=== PATIENT | male | born 1975 | race Caucasian/White ===

== ENCOUNTER 2016-12-18 12:54 | Emergency (ER) | payer OTHER ==
[~2016-12-18] VITALS: Ht 182.9 cm; Wt 65.3 kg
[~2016-12-18 12:54] MED LIST: PERCOCET 325 MG1 TA2 PO; PROTEIN1 PDR PO
--- NOTE | 2016-12-18 13:28 | ED GENERAL ADULT ---
History of Present Illness General Chief Complaint: Abdominal Pain/Flank Pain Stated Complaint: ABD PAIN AND LOWER BACK PAIN Source: patient Exam Limitations: no limitations Vital Signs & Intake/Output Vital Signs & Intake/Output Vital Signs Date Time Temp Pulse Resp B/P Pulse O2 O2 Flow FiO2 Ox Delivery Rate 12/18 1605 98.0 80 16 114/70 98 Room Air Room Air 12/18 1314 98.7 92 18 138/91 98 Room Air ED Intake and Output 12/19 0000 12/18 1200 Intake Total 0 Output Total Balance 0 Intake, Oral 0 Patient 144 lb Weight Allergies Coded Allergies: MDX - Penicillin (PENICILLIN) (Intermediate, STOMACH BLEEDING 06/17/11) Reconcile Medications OXYCODONE HCL/ACETAMINOPHEN (Percocet 5-325 MG Tablet) 325 MG/5 MG TAB 1 TAB PO Q4 HRS NEEDED PRN PAIN Polyethylene Glycol 3350 (Miralax) 17 GRAM/DOSE POWDER 17 GM PO DAILY PRN contipation mix with water, juice, soda, coffee or tea PROTEIN SUPPLEMENT (Protein Powder) 454 GM POWDER 1 PAC PO DAILY SUPPLEMENT ( Reported) Triage Note: 41 Y/O MALE C/O LLQ PAIN X 1 WEEK; STATES 1 WEEK AGO PAIN WAS RLQ. ALSO HAVING SMALL BM'S (LAST BM YESTERDAY BUT "SMALL"). HAVING "SHARP" PAIN IN LOW BACK RADIATING DOWN BOTH LEGS. DENIES NAUSEA. REPORTS DECREASED APPETITE/PO INTAKE. AFEBRILE. Triage Nurses Notes Reviewed? yes HPI: Pt is a 41 yo gentleman with no known past medical history presents with chief complaint of abdominal pain. Onset is about 1 month ago with pain starting at the RLQ abdominal area with radiation to his flank and right back side, the pain then moved to his LLQ area with radiation towards his left back. Patient the pain as dull rating it a 5-6/10 whe its worse. Pain is releived by movement and activity. Not associated with any food intake. Pt admits to having a history of constipation and also drinks a lot of caffeine and does not drink enough water, despite exercising regularly. Pt endorses passing flatus. Pt denies any fevers/ chills,nausea,vomiting,melena, decreased appetite, dysuria, chest pain, palptitation or shortness of breath. (FRANK WHALEN,DEMETRI) Past History Travel History Traveled to [place] past 21 day No Medical History Any Pertinent Medical History? see below for history Neurological: NONE EENT: NONE Cardiovascular: NONE Respiratory: NONE Gastrointestinal: NONE Hepatic: NONE Renal: NONE Musculoskeletal: NONE Psychiatric: NONE Endocrine: NONE Blood Disorders: NONE Cancer(s): NONE [employer]/Reproductive: NONE Surgical History Surgical History: N Psychosocial History What is your primary language Romansh Tobacco Use: Current Daily Use Daily Tobacco Use Amount/Type: Smokeless tobacco daily Family History Hx Contributory? No (FRANK WHALEN,DEMETRI) Review of Systems Review of Systems Constitutional: Denies: diaphoresis, fever, malaise. EENTM: Denies: blurred vision, double vision, visual changes, eye pain. Respiratory: Denies: cough, hemoptysis, orthopnea, short of breath, wheezing. Cardiovascular: Denies: chest pain, edema, orthopena, palpitations. GI: Denies: abdominal pain, bloating, constipation. Genitourinary: Denies: discharge, dysuria, frequency, hematuria. Musculoskeletal: Denies: joint pain, joint swelling, muscle pain. Skin: Denies: erythema. Neurological/Psychological: Denies: confusion, depressed. Hematologic/Endocrine: Denies: bruising, bleeding, polyuria. (FRANK WHALEN,DEMETRI) Physical Exam Physical Exam General Appearance: well developed/nourished, no apparent distress, alert, awake Head: atraumatic, normal appearance, active bleeding Eyes: Bilateral: normal appearance, PERRL, EOMI. Ears, Nose, Throat: normal pharynx Neck: normal inspection, supple Respiratory: normal breath sounds, no respiratory distress, lungs clear Cardiovascular: regular rate/rhythm Gastrointestinal: normal bowel sounds, soft, BS + in all quadrants. negative psoas, rovsing sign, and obturator sign. Very mild tenderness on palpaation of RlQ. No guarding or rebound. No CVA tenderness. Back: normal inspection, normal range of motion, vertebral tenderness, NO CVA tenderness Extremities: normal inspection, normal capillary refill Neurologic/Psych: no motor/sensory deficits, awake, alert, oriented x 3 Skin: intact, normal color Core Measures ACS in differential dx? No CVA/TIA Diagnosis: No Severe Sepsis Present: No Septic Shock Present: No (FRANK WHALEN,DEMETRI) Progress Differential Diagnoses I considered the following diagnoses in my evaluation of the patient: Constipation,bowel obstruction,nephrolithiasis, UTI, Biliary diseases, appendicitis. Plan of Care: Orders Procedure Date/time Status URINALYSIS 12/18 131 Complete COMPREHENSIVE METABOLIC PANEL 12/18 1314 Complete CBC WITHOUT DIFFERENTIAL 12/18 1314 Complete Laboratory Tests 12/18/16 1403: Urine Color STRAW, Urine Clarity CLEAR, Urine pH 7.0, Ur Specific [place] <= 1.005, Urine Protein NEG, Urine Ketones NEG, Urine Nitrite NEG, Urine Bilirubin NEG, Urine Urobilinogen 0.2, Ur Leukocyte Esterase NEG, Ur Microscopic EXAM NOT REQUIRED, Urine Hemoglobin NEG, Urine Glucose NEG 12/18/16 1340: Anion Gap 9, Estimated GFR > 60, BUN/Creatinine Ratio 10.0, Glucose 92, Calcium 9.8, Total Bilirubin 1.1, AST 21, ALT 29, Alkaline Phosphatase 48, Total Protein 7.4, Albumin 4.5, Globulin 2.9, Albumin/Globulin Ratio 1.6, CBC w Diff NO MAN DIFF REQ, RBC 5.44, MCV 86.9, MCH 29.2, RDW 13.0, MPV 8.8, Gran % 57.8, Lymphocytes % 30.2, Monocytes % 10.1 H, Eosinophils % 1.3, Basophils % 0.6, Absolute Granulocytes 3.1, Absolute Lymphocytes 1.6, Absolute Monocytes 0.5, Absolute Eosinophils 0.1, Absolute Basophils 0, PUBS MCHC 33.6 Diagnostic Imaging: Viewed by Me: Radiology Read. Radiology Impression: suggestive of nephrolithiasis on pole of right kidney. Not more than 4mm Initial ED EKG: none (FRANK WHALEN,DEMETRI) Departure Departure Disposition: HOME OR SELF CARE Condition: Stable Clinical Impression Primary Impression: Nephrolithiasis Ruled Out Impressions: Appendicitis, Bowel obstruction Referrals: OR[place]O WHALEN,JOSE Reese (PCP/Family) Additional Instructions: The Xray shows you might have a kidney stone on your right kidney, please drink plenty of water to hydrate yourself and flush the stone. Please seek medical attention if your pain worsens or your see blood in the urine or develop fever or vomiting Continue taking the Ibuprofen you have at home for your pain Please follow up with your PCP within 1 week and inform him about your ER visit Please take Miralax for constipation. Departure Forms: Customer Survey General Discharge Information Prescriptions: Current Visit Scripts Polyethylene Glycol 3350 (Miralax) 17 GM PO DAILY PRN contipation #255 GM mix with water, juice, soda, coffee or tea (FRANK WHALEN,DEMETRI) Resident Co-Sign Statement Statement: ED Attending supervision documentation- x I saw and evaluated the patient. I have also reviewed all the pertinent lab results and diagnostic results. I agree with the findings and the plan of care as documented in the Resident's documentation. [] I have reviewed the ED Record and agree with the Resident's documentation. [] Additions or exceptions (if any) to the Resident's note and plan are summarized below: [] (JAROCHO LOZANO MD) Critical Care Note Critical Care Note Critical Care Time: non-applicable (FRANK WHALEN,DEMETRI)
[2016-12-18 13:56] LABS: ABSOLUTE BASOPHIL COUNT 0 /CUMM (0.0-0.2); ABSOLUTE EOSINOPHIL COUNT 0.1 /CUMM (0.0-0.7); ABSOLUTE GRANULOCYTE CT 3.1 /CUMM (1.4-6.5); ABSOLUTE LYMPH COUNT 1.6 /CUMM (1.2-3.4); ABSOLUTE MONOCYTE COUNT 0.5 /CUMM (0.10-0.60); BASOPHIL % 0.6 % (0.0-2.0); EOSINOPHIL % 1.3 % (0-5); GRANULOCYTE % 57.8 % (42.2-75.2); HEMATOCRIT 47.3 % (42-52); MEAN CORPUSCULAR HGB 29.2 PG (27.0-31.0); MEAN CORPUSCULAR HGB CONC 33.6 G/DL (33.0-37.0); MEAN CORPUSCULAR VOLUME 86.9 FL (80.0-94.0); MEAN PLATELET VOLUME 8.8 FL (7.4-10.4); PLATELET COUNT 200 /CUMM (130-400); RED BLOOD CELL CT 5.44 /CUMM (4.70-6.10); WHITE BLOOD CELL COUNT 5.3 /CUMM (4.8-10.8)
--- NOTE | 2016-12-18 14:55 | RADIOLOGY REPORT ---
EXAMINATION: XR ABDOMEN MULTIPLE VIEWS CLINICAL INDICATION: Bowel obstruction. Abdominal pain. Constipation. COMPARISON: 06/16/2011 TECHNIQUE: AP upright and supine views of the abdomen FINDINGS: There is moderate right convex lumbar scoliosis. No fractures. Nondilated bowel gas pattern. No pathologic air-fluid levels or pneumoperitoneum. Normal stool volume. Imaged portion of the lung bases are clear. Small linear calcifications overlie the right kidney, measuring 2 to 4 mm in diameter. These may represent ingested materials are ready dense renal calculi. No calculi are identified over the ureters. Phleboliths are present in the pelvis. IMPRESSION: 1. Nondilated bowel gas pattern. Normal stool volume. 2. Radiodense calcifications over the right lower renal pole, potentially corresponding to nephrolithiasis.
[2016-12-18] MEDS ORDERED: MIRALAX119 GM PO (15:44)
[2016-12-18 16:05] VITALS: BP 114/70
== END 2016-12-18 16:06 ==
LOC: ERH 12:54
PROVIDERS: Emergency Medicine
DX: N20.0 Calculus of kidney (principal); K37 Unspecified appendicitis; K56.60 Unspecified intestinal obstruction
CPT/HCPCS: 74020; 81003